=== PATIENT | female | born 1965 | race Caucasian/White ===

== ENCOUNTER 2025-03-12 11:43 | Inpatient (IN) | payer MEDICARE, MEDICAID ==
[~2025-03-12] VITALS: Ht 172.7 cm; Wt 78.3 kg
[~2025-03-12 11:43] MED LIST: ACET-897 PO; ALLO100T PO; BUDE3CAP PO; CYMB1CAP5 PO; ERGO500029 PO; FLUO40CA PO; GABA-1172 PO; INDO50CA2 OR; LEVO50TA2 OR; LEVO88TA3 PO; LISI10TA22 PO; MAGO400T2 PO; NYST-38 PO; ONDA-282 PO; PANT40TA29 PO; PRED20TA PO; SIME80CH6 GT; TRAM50TA2 OR; TRAZ1TAB11 PO; [UNRECOGNIZED DRUG - CODE] PO; [UNRECOGNIZED DRUG - OTHER] PO
[2025-03-13] MEDS ORDERED: PRED10TA2 PO (10:53)
[2025-03-13] MEDS ORDERED: LEVO75TAB PO (11:21)
[2025-03-13] MEDS ORDERED: ONDANSETRON 4MG ORAL DISINTEGRATING TAB PO PRN (12:25)
[2025-03-13] MEDS ORDERED: BISACODYL 10 MG SUPP PR PRN (12:40)
[2025-03-13] MEDS ORDERED: SIMETHICONE 80MG CHEW TAB PO PRN (12:40)
[2025-03-13] MEDS ORDERED: MAALOX 30 ML SUSP *UDC PO PRN (12:40)
[2025-03-13] MEDS ORDERED: MOM 30 ML SUSPENSION UDC PO PRN (12:40)
[2025-03-13] MEDS ORDERED: BISACODYL 5 MG TAB PO PRN (12:40)
[2025-03-13] MEDS ORDERED: LEVALBUTEROL 1.25 MG 0.5ML CONCENTRATE NEB INH PRN (12:45)
[2025-03-13 14:55] VITALS: BP 117/63; TEMP 98.3; O2SAT 99
[2025-03-13] MEDS: LEVALBUTEROL 1.25 MG 0.5ML CONCENTRATE NEB INH SCH (16:05)
[2025-03-13] MEDS: MAGNESIUM OXIDE 400 MG TAB PO SCH (18:25)
[2025-03-13] MEDS: NYSTATIN 500,000 UNITS/5 ML SUSP UDC PO SCH (18:25)
[2025-03-13] MEDS: ACETAMINOPHEN 500 MG TAB PO PRN (19:38)
[2025-03-13 20:00] VITALS: BP 135/78; TEMP 97; O2SAT 96
[2025-03-13] MEDS: SENNOSIDES/DOCUSATE SODIUM 8.6 MG/50MG TAB PO SCH (20:44)
[2025-03-13] MEDS: NYSTATIN 100,000 UNITS/GM TOPICAL PWD 15 GM TOP SCH (21:01)
[2025-03-13] MEDS: DICLOFENAC EPOLAMINE 1.3% PATCH TOP SCH (21:01)
[2025-03-13] MEDS: GABAPENTIN 300 MG CAP PO SCH (21:01)
[2025-03-14] MEDS: traZODone 50 MG TAB PO PRN (00:22)
[2025-03-14 04:00] VITALS: BP 159/90; TEMP 97; O2SAT 90
[2025-03-14] MEDS: LEVOTHYROXINE 88 MCG TABLET (0.088 MG) PO SCH (05:36)
[2025-03-14 06:17] LABS: BASO # 0.0 10^3/uL (0.0-0.2); BASO % 0.2 % (0.0-1.0); EOS # 0.1 10^3/uL (0.0-0.5); EOS % 1.0 % (0.0-3.0); LYMPH # 0.9 10^3/uL (1.5-5.0); LYMPH % 9.6 % (24.0-44.0); MONO # 0.5 10^3/uL (0.0-0.8); MONO % 5.4 % (2.0-8.0); NEUTROPHILS # 7.6 10^3/uL (1.5-8.5); NEUTROPHILS % 82.5 % (36.0-66.0); PLATELET COUNT, AUTOMATED 279 10^3/uL (150-450)
[2025-03-14 07:04] LABS: ALT/SGPT 22 U/L (7.0-40); AST/SGOT 23 U/L (<34); CALCIUM LEVEL 8.3 MG/DL (8.3-10.6); CARBON DIOXIDE LEVEL 31 MMOL/L (20-31); CHLORIDE LEVEL 101 MMOL/L (98-107); CREATININE FOR GFR 0.55 MG/DL (0.55-1.30); GLOMERULAR FILTRATION RATE > 90.0 (>45); POTASSIUM SERUM 3.9 MMOL/L (3.5-5.1); SODIUM LEVEL 141 MMOL/L (136-145)
[2025-03-14 07:20] VITALS: O2SAT 96
[2025-03-14] MEDS: BUDESONIDE EC 3 MG CAP PO SCH (07:22)
[2025-03-14] MEDS: predniSONE 20 MG TAB PO SCH (07:23)
[2025-03-14] MEDS: FLUoxetine 20 MG CAP PO SCH (07:23)
[2025-03-14] MEDS: PANTOPRAZOLE 40MG TAB PO SCH (07:23)
[2025-03-14] MEDS: ENOXAPARIN 40 MG/0.4 ML SYRINGE (J1650 PER 10MG) SC SCH (07:23)
[2025-03-14] MEDS: MIRALAX *UNIT DOSE* 17 GM PACKET PO SCH (08:22)
[2025-03-14] MEDS ORDERED: predniSONE 10 MG TAB PO SCH (09:00)
[2025-03-14] MEDS ORDERED: MAGNESIUM OXIDE 400 MG TAB PO SCH (09:00)
[2025-03-14 12:00] VITALS: BP 108/72; TEMP 97.3; O2SAT 93
[2025-03-14] MEDS: ACETAMINOPHEN 500 MG TAB PO SCH (12:01)
[2025-03-14 20:19] VITALS: BP 125/91; TEMP 97.5; O2SAT 94
[2025-03-15 04:00] VITALS: BP 134/74; TEMP 97.2; O2SAT 92
[2025-03-15 12:00] VITALS: BP 129/78; TEMP 97; O2SAT 96
[2025-03-15] MEDS: CYCLOBENZAPRINE 10 MG TABLET PO ONE (12:32)
[2025-03-15] MEDS ORDERED: PROHANCE 279.3MG/ML 15ML VIAL As Ordered ONE (16:49)
[2025-03-15] MEDS: THIAMINE INJection 500 MG in NS 100 ML IV SCH (17:50)
[2025-03-15] MEDS: CYANOCOBALAMIN 1,000 MCG/ML 1 ML VIAL IM SCH (17:51)
[2025-03-15 20:00] VITALS: BP 131/79; TEMP 98.1; O2SAT 94
[2025-03-16] MEDS: CYCLOBENZAPRINE 10 MG TABLET PO PRN (00:15)
[2025-03-16 04:00] VITALS: BP 139/76; TEMP 97.3; O2SAT 92
[2025-03-16 06:26] LABS: PLATELET COUNT, AUTOMATED 303 10^3/uL (150-450)
[2025-03-16 09:15] VITALS: BP 130/70
[2025-03-16 12:00] VITALS: BP 128/72; TEMP 97.4; O2SAT 95
[2025-03-16] MEDS ORDERED: PRED10TA2 PO (12:38)
[2025-03-16] MEDS ORDERED: LEVA1.25 INH (12:38)
[2025-03-16] MEDS ORDERED: MAGN400T33 PO (12:38)
[2025-03-16] MEDS ORDERED: CYCL10TA20 PO (12:38)
[2025-03-16] MEDS ORDERED: NYST10006 TOP (12:38)
[2025-03-16] MEDS ORDERED: GABA-1172 PO (12:38)
[2025-03-16] MEDS ORDERED: thiamine IV (12:38)
[2025-03-16] MEDS ORDERED: ACET-683 PO (12:38)
[2025-03-16] MEDS ORDERED: SENN-208 PO (12:38)
[2025-03-16] MEDS ORDERED: ENOX40IN3 SC (12:38)
[2025-03-16] MEDS ORDERED: DICL1PAT6 TOP (12:38)
[2025-03-16] MEDS ORDERED: OXYC-517 PO (12:38)
[2025-03-16] MEDS ORDERED: CYAN100017 IM (12:38)
[2025-03-16] MEDS ORDERED: MIRA33506 PO (12:38)
[2025-03-16 14:50] VITALS: TEMP 98.5
[2025-03-16 15:40] VITALS: BP 107/61; O2SAT 96
[2025-03-16 16:27] LABS: APPEARANCE, CSF CLEAR (CLEAR); COLOR, CSF COLORLESS (COLORLESS); CSF TUBE# CELL CNT TUBE 1
[2025-03-16 16:43] LABS: CSF TUBE# TP TUBE 3; TOTAL PROTEIN,CSF 85.2 MG/DL (15-45)
[2025-03-16 16:46] LABS: CSF TUBE# GLU TUBE 2; GLUCOSE CSF 60.0 MG/DL (40-70)
[2025-03-17] MEDS ORDERED: MIRA3350 PO (06:03)
[2025-03-17] MEDS ORDERED: SENN1TAB85 PO (06:03)
[2025-03-17] MEDS ORDERED: MAGN400T35 PO (06:04)
[2025-03-17] MEDS ORDERED: NYST1POW3 TOP (06:07)
[2025-03-17] MEDS ORDERED: predniSONE 10 MG TAB PO SCH (09:00)
[2025-03-18 02:22] LABS: T P ELECTROPHORESIS SO 4.6 g/dL (6.1-8.1)
[2025-03-18] MEDS ORDERED: VITAMIN D 50,000 UNITS CAPSULE (ERGOCALCIFEROL 1.25MG) PO SCH (09:00)
[2025-03-19 23:45] LABS: CSF LYME DISEASE AB IGG NO BANDS DETECTED (NO BANDS); CSF LYME DISEASE AB IGM NO BANDS DETECTED (NO BANDS)
[2025-03-20] MEDS ORDERED: predniSONE 10 MG TAB PO SCH (09:00)
[2025-03-20 13:43] LABS: ALBUMIN SPEP 2.6 g/dL (3.8-4.8); ALPHA-1-GLOBULINS SO 0.4 g/dL (0.2-0.3); ALPHA-2-GLOBULINS SO 0.7 g/dL (0.5-0.9); BETA 2 GLOBULIN 0.2 g/dL (0.2-0.5); BETA-GLOBULIN SO 0.3 g/dL (0.4-0.6); GAMMA GLOBULINS SO 0.3 g/dL (0.8-1.7)
[2025-03-20 20:27] LABS: OLIGOCLONAL BANDS, CSF Absent (Absent)
[2025-03-21 17:11] LABS: VITAMIN B1 LEVEL WHOLE BLOOD 57 nmol/L (78-185)
[2025-03-23 01:06] LABS: MYELIN BASIC PROTEIN, CSF 10.8 ng/mL (0.0-3.7)
== END 2025-03-16 16:22 | disposition still patient (30) | DRG 94 ==
LOC: M PM&R 03-13 13:55
PROVIDERS: ADMIT Physical Medicine & Rehabilitation; ATTEND Physical Medicine & Rehabilitation
PROC: 009U3ZX Drainage of Spinal Canal, Percutaneous Approach, Diagnostic (ICD-10-PCS; principal; 2025-03-16 15:30)
DX: G61.0 Guillain-Barre syndrome (principal); J18.9 Pneumonia, unspecified organism; K50.90 Crohn's disease, unspecified, without complications; N13.30 Unspecified hydronephrosis; Q21.12 Patent foramen ovale; N13.4 Hydroureter; E51.2 Wernicke's encephalopathy; I10 Essential (primary) hypertension; E03.9 Hypothyroidism, unspecified; G89.29 Other chronic pain; M06.9 Rheumatoid arthritis, unspecified; K44.9 Diaphragmatic hernia without obstruction or gangrene; K21.9 Gastro-esophageal reflux disease without esophagitis; M10.9 Gout, unspecified; Z74.1 Need for assistance with personal care; Z74.09 Other reduced mobility; F39 Unspecified mood [affective] disorder; I89.0 Lymphedema, not elsewhere classified; R32 Unspecified urinary incontinence; R07.89 Other chest pain; Z87.891 Personal history of nicotine dependence; Z96.641 Presence of right artificial hip joint; Z90.49 Acquired absence of other specified parts of digestive tract; Z79.890 Hormone replacement therapy; Z79.52 Long term (current) use of systemic steroids; Z79.899 Other long term (current) drug therapy; R26.89 Other abnormalities of gait and mobility

== ENCOUNTER 2025-03-16 13:09 | Inpatient (IN) | payer MEDICARE, MEDICAID ==
[2025-03-16] VITALS (12 sets, daily range): BP systolic 105–171; BP diastolic 69–95; TEMP 97.2–98.9; O2SAT 92–97
[~2025-03-16] VITALS: Ht 172.7 cm; Wt 76.5 kg
[~2025-03-16 13:09] MED LIST changes: +ACET-683 PO; +CYAN100017 IM; +CYCL10TA20 PO; +DICL1PAT6 TOP; +ENOX40IN3 SC; +LEVA1.25 INH; +LEVO75TAB PO; +MAGN400T33 PO; +MIRA33506 PO; +NYST10006 TOP; +OXYC-517 PO; +PRED10TA2 PO; +SENN-208 PO; +thiamine IV
[2025-03-16] MEDS ORDERED: MAALOX 30 ML SUSP *UDC PO PRN (14:15)
[2025-03-16] MEDS ORDERED: MOM 30 ML SUSPENSION UDC PO PRN (14:15)
[2025-03-16] MEDS: diphenhydrAMINE 50 MG/ML VIAL IV SCH (18:06)
[2025-03-16] MEDS: ACETAMINOPHEN 325 MG TAB PO SCH (18:08)
[2025-03-16] MEDS: IMMUNE GLOBULIN 10% 5 GM in IV 1 EA IV SCH (18:51)
[2025-03-16] MEDS: IMMUNE GLOBULIN 10% 10 GM in IV 1 EA IV SCH (20:22)
[2025-03-16] MEDS: PANTOPRAZOLE 40MG TAB PO SCH (20:46)
[2025-03-16] MEDS: SENNOSIDES/DOCUSATE SODIUM 8.6 MG/50MG TAB PO SCH (20:46)
[2025-03-16] MEDS: IMMUNE GLOBULIN 10% 40 GM in IV 1 EA IV SCH (21:47)
[2025-03-16] MEDS: CYCLOBENZAPRINE 10 MG TABLET PO ONE (22:43)
[2025-03-17] VITALS (11 sets, daily range): BP systolic 102–160; BP diastolic 67–92; TEMP 97.2–98.7; O2SAT 91–95
[2025-03-17] MEDS: THIAMINE INJection 500 MG in NS 100 ML IV SCH (00:35)
[2025-03-17] MEDS: ACETAMINOPHEN 325 MG TAB PO PRN (01:27)
[2025-03-17] MEDS ORDERED: CEPACOL LOZENGE PO PRN (03:05)
[2025-03-17] MEDS ORDERED: SENN1TAB85 PO (06:03)
[2025-03-17] MEDS ORDERED: MIRA3350 PO (06:03)
[2025-03-17] MEDS ORDERED: MAGN400T35 PO (06:04)
[2025-03-17] MEDS ORDERED: NYST1POW3 TOP (06:07)
[2025-03-17] MEDS ORDERED: HOME MED LIST COMPLETE! XX SCH (06:30)
[2025-03-17] MEDS ORDERED: ONDANSETRON 4MG ORAL DISINTEGRATING TAB PO PRN (06:40)
[2025-03-17] MEDS ORDERED: traZODone 50 MG TAB PO PRN (06:40)
[2025-03-17 07:05] LABS: BASO # 0.0 10^3/uL (0.0-0.2); BASO % 0.0 % (0.0-1.0); EOS # 0.0 10^3/uL (0.0-0.5); EOS % 0.0 % (0.0-3.0); LYMPH # 0.6 10^3/uL (1.5-5.0); LYMPH % 7.0 % (24.0-44.0); MONO # 0.5 10^3/uL (0.0-0.8); MONO % 6.0 % (2.0-8.0); NEUTROPHILS # 7.1 10^3/uL (1.5-8.5); NEUTROPHILS % 85.1 % (36.0-66.0); PLATELET COUNT, AUTOMATED 331 10^3/uL (150-450)
[2025-03-17] MEDS: LEVALBUTEROL 1.25 MG 0.5ML CONCENTRATE NEB INH SCH (07:31)
[2025-03-17 07:42] LABS: ALT/SGPT 25 U/L (7.0-40); AST/SGOT 25 U/L (<34); CALCIUM LEVEL 8.4 MG/DL (8.3-10.6); CARBON DIOXIDE LEVEL 27 MMOL/L (20-31); CHLORIDE LEVEL 103 MMOL/L (98-107); CREATININE FOR GFR 0.63 MG/DL (0.55-1.30); GLOMERULAR FILTRATION RATE > 90.0 (>45); MAGNESIUM LEVEL 1.7 MG/DL (1.8-2.4); POTASSIUM SERUM 4.2 MMOL/L (3.5-5.1); SODIUM LEVEL 138 MMOL/L (136-145)
[2025-03-17] MEDS: BUDESONIDE EC 3 MG CAP PO SCH (08:51)
[2025-03-17] MEDS: ENOXAPARIN 40 MG/0.4 ML SYRINGE (J1650 PER 10MG) SC SCH (08:51)
[2025-03-17] MEDS: LEVOTHYROXINE 88 MCG TABLET (0.088 MG) PO SCH (08:51)
[2025-03-17] MEDS: FLUoxetine 20 MG CAP PO SCH (08:52)
[2025-03-17] MEDS: CYANOCOBALAMIN 1,000 MCG/ML 1 ML VIAL IM SCH (08:53)
[2025-03-17] MEDS: MIRALAX *UNIT DOSE* 17 GM PACKET PO SCH (08:53)
[2025-03-17] MEDS: MAG SULF 1GM/100ML (MAG RUN) 1 GM in IV 1 EA IV SCH (13:56)
[2025-03-17] MEDS ORDERED: PROHANCE 279.3MG/ML 15ML VIAL As Ordered ONE (14:15)
[2025-03-18] VITALS (10 sets, daily range): BP systolic 137–166; BP diastolic 70–97; TEMP 97.2–98.7; O2SAT 92–99
[2025-03-18] MEDS: CYCLOBENZAPRINE 10 MG TABLET PO ONE (00:30)
[2025-03-18 06:18] LABS: CALCIUM LEVEL 7.8 MG/DL (8.3-10.6); CARBON DIOXIDE LEVEL 28 MMOL/L (20-31); CHLORIDE LEVEL 103 MMOL/L (98-107); CREATININE FOR GFR 0.60 MG/DL (0.55-1.30); GLOMERULAR FILTRATION RATE > 90.0 (>45); MAGNESIUM LEVEL 1.7 MG/DL (1.8-2.4); POTASSIUM SERUM 4.0 MMOL/L (3.5-5.1); SODIUM LEVEL 137 MMOL/L (136-145)
[2025-03-18 07:36] LABS: BASO # 0.0 10^3/uL (0.0-0.2); BASO % 0.1 % (0.0-1.0); EOS # 0.0 10^3/uL (0.0-0.5); EOS % 0.0 % (0.0-3.0); LYMPH # 0.5 10^3/uL (1.5-5.0); LYMPH % 7.2 % (24.0-44.0); MONO # 0.4 10^3/uL (0.0-0.8); MONO % 5.6 % (2.0-8.0); NEUTROPHILS # 5.8 10^3/uL (1.5-8.5); NEUTROPHILS % 85.3 % (36.0-66.0); PLATELET COUNT, AUTOMATED 306 10^3/uL (150-450)
[2025-03-18] MEDS: MAG SULF 1GM/100ML (MAG RUN) 1 GM in IV 1 EA IV ONE (08:51)
[2025-03-19 04:45] VITALS: BP 160/98; TEMP 98.8; O2SAT 92
[2025-03-19 06:12] LABS: BASO # 0.0 10^3/uL (0.0-0.2); BASO % 0.2 % (0.0-1.0); EOS # 0.0 10^3/uL (0.0-0.5); EOS % 0.0 % (0.0-3.0); LYMPH # 0.6 10^3/uL (1.5-5.0); LYMPH % 9.1 % (24.0-44.0); MONO # 0.3 10^3/uL (0.0-0.8); MONO % 5.5 % (2.0-8.0); NEUTROPHILS # 5.0 10^3/uL (1.5-8.5); NEUTROPHILS % 82.7 % (36.0-66.0); PLATELET COUNT, AUTOMATED 299 10^3/uL (150-450)
[2025-03-19 06:41] LABS: CALCIUM LEVEL 7.8 MG/DL (8.3-10.6); CARBON DIOXIDE LEVEL 29 MMOL/L (20-31); CHLORIDE LEVEL 100 MMOL/L (98-107); CREATININE FOR GFR 0.54 MG/DL (0.55-1.30); GLOMERULAR FILTRATION RATE > 90.0 (>45); MAGNESIUM LEVEL 1.7 MG/DL (1.8-2.4); POTASSIUM SERUM 3.6 MMOL/L (3.5-5.1); SODIUM LEVEL 135 MMOL/L (136-145)
[2025-03-19] MEDS: MAG SULF 1GM/100ML (MAG RUN) 1 GM in IV 1 EA IV SCH (10:25)
[2025-03-19] MEDS: ACETAMINOPHEN 650MG PO PRIOR TO INFUSION PO SCH (12:31)
[2025-03-19] MEDS: diphenhydrAMINE 25MG IV PRIOR TO INFUSION IV SCH (12:31)
[2025-03-19] MEDS: IMMUNE GLOBULIN 10% 20 GM in IV 1 EA IV ONE (13:19)
[2025-03-19 13:29] VITALS: BP 154/87; TEMP 98.4; O2SAT 95
[2025-03-19 13:51] VITALS: BP 159/85; TEMP 98.2; O2SAT 94
[2025-03-19 14:25] VITALS: BP 130/84; TEMP 98.3; O2SAT 92
[2025-03-19 15:10] VITALS: BP 137/81; TEMP 98.3; O2SAT 93
[2025-03-19] MEDS: IMMUNE GLOBULIN 10% 10 GM in IV 1 EA IV ONE (15:53)
[2025-03-19] MEDS: MAGNESIUM OXIDE 400 MG TAB PO SCH (20:09)
[2025-03-19 20:23] VITALS: BP 140/86; TEMP 97.4; O2SAT 93
[2025-03-20] VITALS (11 sets, daily range): BP systolic 105–160; BP diastolic 62–96; TEMP 97–98; O2SAT 89–96
[2025-03-20 06:44] LABS: BASO # 0.0 10^3/uL (0.0-0.2); BASO % 0.2 % (0.0-1.0); EOS # 0.0 10^3/uL (0.0-0.5); EOS % 0.2 % (0.0-3.0); LYMPH # 0.7 10^3/uL (1.5-5.0); LYMPH % 12.4 % (24.0-44.0); MONO # 0.5 10^3/uL (0.0-0.8); MONO % 8.1 % (2.0-8.0); NEUTROPHILS # 4.4 10^3/uL (1.5-8.5); NEUTROPHILS % 77.2 % (36.0-66.0); PLATELET COUNT, AUTOMATED 316 10^3/uL (150-450)
[2025-03-20 07:13] LABS: CALCIUM LEVEL 7.9 MG/DL (8.3-10.6); CARBON DIOXIDE LEVEL 29 MMOL/L (20-31); CHLORIDE LEVEL 100 MMOL/L (98-107); CREATININE FOR GFR 0.55 MG/DL (0.55-1.30); GLOMERULAR FILTRATION RATE > 90.0 (>45); MAGNESIUM LEVEL 1.7 MG/DL (1.8-2.4); POTASSIUM SERUM 3.3 MMOL/L (3.5-5.1); SODIUM LEVEL 136 MMOL/L (136-145)
[2025-03-20] MEDS: POTASSIUM CHLORIDE 10MEQ SR TABLET PO ONE (08:06)
[2025-03-20] MEDS: MAG SULF 1GM/100ML (MAG RUN) 1 GM in IV 1 EA IV SCH (09:12)
[2025-03-20] MEDS ORDERED: CYAN100017 IM (10:50)
[2025-03-20] MEDS ORDERED: MAGN400T33 PO (10:50)
[2025-03-20] MEDS ORDERED: [UNRECOGNIZED DRUG - CODE] IV (10:50)
[2025-03-20] MEDS: IMMUNE GLOBULIN 10% 10 GM in IV 1 EA IV ONE (12:17)
[2025-03-20] MEDS: IMMUNE GLOBULIN 10% 20 GM in IV 1 EA IV ONE (14:04)
== END 2025-03-20 16:57 | DRG 95 ==
LOC: M ED INP 13:33 → UNDOADMIN 13:33 → M MSPAV 15:59
PROVIDERS: ADMIT Student in an Organized Health Care Education/Training Program; ATTEND Internal Medicine
DX: G61.0 Guillain-Barre syndrome (principal); K50.90 Crohn's disease, unspecified, without complications; Q21.12 Patent foramen ovale; I10 Essential (primary) hypertension; E03.9 Hypothyroidism, unspecified; M10.9 Gout, unspecified; K21.9 Gastro-esophageal reflux disease without esophagitis; E87.6 Hypokalemia; M06.9 Rheumatoid arthritis, unspecified; K44.9 Diaphragmatic hernia without obstruction or gangrene; I89.0 Lymphedema, not elsewhere classified; Z90.49 Acquired absence of other specified parts of digestive tract; Z96.642 Presence of left artificial hip joint; Z87.891 Personal history of nicotine dependence; F39 Unspecified mood [affective] disorder; G89.29 Other chronic pain; D64.9 Anemia, unspecified; E83.42 Hypomagnesemia; Z79.890 Hormone replacement therapy; Z79.899 Other long term (current) drug therapy

== ENCOUNTER 2025-03-20 12:39 | Inpatient (IN) | payer MEDICARE, MEDICAID ==
[~2025-03-20] VITALS: Ht 172.7 cm; Wt 69.0 kg
[~2025-03-20 12:39] MED LIST changes: +MAGN400T35 PO; +MIRA3350 PO; +NYST1POW3 TOP; +SENN1TAB85 PO; +[UNRECOGNIZED DRUG - CODE] IV
[2025-03-20] MEDS ORDERED: MIRALAX *UNIT DOSE* 17 GM PACKET PO PRN (15:25)
[2025-03-20] MEDS ORDERED: traZODone 50 MG TAB PO PRN (15:25)
[2025-03-20] MEDS ORDERED: ONDANSETRON 4MG ORAL DISINTEGRATING TAB PO PRN ×2 (15:25→15:40)
[2025-03-20] MEDS ORDERED: BISACODYL 5 MG TAB PO PRN (15:40)
[2025-03-20] MEDS ORDERED: SIMETHICONE 80MG CHEW TAB PO PRN (15:40)
[2025-03-20] MEDS ORDERED: MAALOX 30 ML SUSP *UDC PO PRN (15:40)
[2025-03-20] MEDS ORDERED: MOM 30 ML SUSPENSION UDC PO PRN (15:40)
[2025-03-20] MEDS ORDERED: BISACODYL 10 MG SUPP PR PRN (15:40)
[2025-03-20 17:00] VITALS: BP 138/88; TEMP 97.9; O2SAT 94
[2025-03-20] MEDS: ACETAMINOPHEN 500 MG TAB PO SCH (18:59)
[2025-03-20] MEDS: LEVALBUTEROL 1.25 MG 0.5ML CONCENTRATE NEB INH SCH (19:44)
[2025-03-20 20:00] VITALS: BP 180/80; TEMP 97.4; O2SAT 95
[2025-03-20] MEDS: MAGNESIUM OXIDE 400 MG TAB PO SCH (20:26)
[2025-03-20] MEDS: PANTOPRAZOLE 40MG TAB PO SCH (20:26)
[2025-03-20] MEDS: GABAPENTIN 300 MG CAP PO SCH (20:26)
[2025-03-20] MEDS: CYCLOBENZAPRINE 10 MG TABLET PO PRN (20:26)
[2025-03-20] MEDS: SENNOSIDES/DOCUSATE SODIUM 8.6 MG/50MG TAB PO SCH (20:27)
[2025-03-20] MEDS: DICLOFENAC EPOLAMINE 1.3% PATCH TOP SCH (20:27)
[2025-03-20] MEDS: NYSTATIN 100,000 UNITS/GM TOPICAL PWD 15 GM TOP SCH (21:00)
[2025-03-21] MEDS: THIAMINE INJection 500 MG in NS 100 ML IV SCH (00:45)
[2025-03-21 04:00] VITALS: BP 160/82; TEMP 97.5; O2SAT 96
[2025-03-21 06:27] LABS: BASO # 0.0 10^3/uL (0.0-0.2); BASO % 0.2 % (0.0-1.0); EOS # 0.0 10^3/uL (0.0-0.5); EOS % 0.4 % (0.0-3.0); LYMPH # 0.5 10^3/uL (1.5-5.0); LYMPH % 10.8 % (24.0-44.0); MONO # 0.5 10^3/uL (0.0-0.8); MONO % 10.4 % (2.0-8.0); NEUTROPHILS # 3.5 10^3/uL (1.5-8.5); NEUTROPHILS % 75.8 % (36.0-66.0); PLATELET COUNT, AUTOMATED 275 10^3/uL (150-450)
[2025-03-21] MEDS: LEVOTHYROXINE 88 MCG TABLET (0.088 MG) PO SCH (06:27)
[2025-03-21 06:47] LABS: ALT/SGPT 20 U/L (7.0-40); AST/SGOT 27 U/L (<34); CALCIUM LEVEL 7.8 MG/DL (8.3-10.6); CARBON DIOXIDE LEVEL 26 MMOL/L (20-31); CHLORIDE LEVEL 102 MMOL/L (98-107); CREATININE FOR GFR 0.56 MG/DL (0.55-1.30); GLOMERULAR FILTRATION RATE > 90.0 (>45); POTASSIUM SERUM 3.8 MMOL/L (3.5-5.1); SODIUM LEVEL 134 MMOL/L (136-145)
[2025-03-21] MEDS: CYANOCOBALAMIN 1,000 MCG/ML 1 ML VIAL IM SCH (08:20)
[2025-03-21] MEDS: ENOXAPARIN 40 MG/0.4 ML SYRINGE (J1650 PER 10MG) SC SCH (08:20)
[2025-03-21] MEDS: BUDESONIDE EC 3 MG CAP PO SCH (08:21)
[2025-03-21] MEDS: FLUoxetine 20 MG CAP PO SCH (08:22)
[2025-03-21 12:00] VITALS: BP 142/67; TEMP 98.7; O2SAT 93
[2025-03-21] MEDS ORDERED: PILL CUTTER 1 EACH XX PRN (15:45)
[2025-03-21 20:00] VITALS: BP 155/93; TEMP 96.9; O2SAT 98
[2025-03-21] MEDS: GABAPENTIN 300 MG CAP PO SCH (20:41)
[2025-03-21] MEDS: TAMSULOSIN 0.4 MG CAP PO SCH (20:41)
[2025-03-21] MEDS: traZODone 50 MG TAB PO SCH (20:43)
[2025-03-22 04:00] VITALS: BP 154/89; TEMP 97; O2SAT 94
[2025-03-22 12:14] VITALS: BP 107/63; TEMP 97; O2SAT 96
[2025-03-22 20:00] VITALS: BP 136/88; TEMP 98.3; O2SAT 93
[2025-03-22] MEDS: traZODone 50 MG TAB PO SCH (21:06)
[2025-03-23 04:00] VITALS: BP 120/71; TEMP 97.8; O2SAT 95
[2025-03-23 06:54] LABS: PLATELET COUNT, AUTOMATED 144 10^3/uL (150-450)
[2025-03-23 12:00] VITALS: BP 118/69; TEMP 97.3; O2SAT 94
[2025-03-23 16:55] VITALS: BP 129/79; O2SAT 92
[2025-03-23 19:25] VITALS: BP 124/81; TEMP 98.5; O2SAT 95
[2025-03-24 03:14] VITALS: BP 140/87; TEMP 97.1; O2SAT 93
[2025-03-24 12:00] VITALS: BP 141/96; TEMP 97.8; O2SAT 96
[2025-03-24 20:00] VITALS: BP 167/98; TEMP 97.5; O2SAT 95
[2025-03-25 04:00] VITALS: BP 135/83; TEMP 97.1; O2SAT 93
[2025-03-25 12:00] VITALS: BP 124/75; TEMP 98.5; O2SAT 93
[2025-03-25 20:00] VITALS: BP 159/93; TEMP 97.8; O2SAT 95
[2025-03-26 04:00] VITALS: BP 138/86; TEMP 98.2; O2SAT 93
[2025-03-26 06:21] LABS: PLATELET COUNT, AUTOMATED 200 10^3/uL (150-450)
[2025-03-26 12:00] VITALS: BP 111/71; TEMP 97.7; O2SAT 93
[2025-03-26] MEDS: VITAMIN D 50,000 UNITS CAPSULE (ERGOCALCIFEROL 1.25MG) PO SCH (15:12)
[2025-03-26 20:00] VITALS: BP 111/69; TEMP 98.6; O2SAT 93
[2025-03-26] MEDS ORDERED: DICLOFENAC EPOLAMINE 1.3% PATCH TOP SCH (21:00)
[2025-03-26] MEDS: DICLOFENAC EPOLAMINE 1.3% PATCH TOP SCH (21:18)
[2025-03-27 04:00] VITALS: BP 169/90; TEMP 97.4; O2SAT 95
[2025-03-27 12:00] VITALS: BP_SYST 104; BP_SYST 97; BP_DIAS 66; BP_DIAS 72; TEMP 97; O2SAT 97
[2025-03-27 17:41] LABS: BASO # 0.0 10^3/uL (0.0-0.2); BASO % 0.0 % (0.0-1.0); EOS # 0.0 10^3/uL (0.0-0.5); EOS % 0.4 % (0.0-3.0); LYMPH # 0.7 10^3/uL (1.5-5.0); LYMPH % 24.3 % (24.0-44.0); MONO # 0.4 10^3/uL (0.0-0.8); MONO % 14.6 % (2.0-8.0); NEUTROPHILS # 1.6 10^3/uL (1.5-8.5); NEUTROPHILS % 60.0 % (36.0-66.0); PLATELET COUNT, AUTOMATED 154 10^3/uL (150-450)
[2025-03-27 18:08] LABS: CALCIUM LEVEL 8.3 MG/DL (8.3-10.6); CARBON DIOXIDE LEVEL 28 MMOL/L (20-31); CHLORIDE LEVEL 101 MMOL/L (98-107); CREATININE FOR GFR 0.69 MG/DL (0.55-1.30); GLOMERULAR FILTRATION RATE > 90.0 (>45); POTASSIUM SERUM 4.6 MMOL/L (3.5-5.1); SODIUM LEVEL 136 MMOL/L (136-145)
[2025-03-27 20:00] VITALS: BP 159/98; TEMP 97.5; O2SAT 93
[2025-03-27] MEDS: SODIUM CHLORIDE 0.9% 3 ML NEB SOLUTION FOR INHALATION INH SCH (20:21)
[2025-03-27] MEDS: SODIUM CHLORIDE NASAL 0.65% SPRAY BTL (OCEAN) SCH (20:25)
[2025-03-28 04:00] VITALS: BP 138/76; TEMP 98.6; O2SAT 94
[2025-03-28 12:00] VITALS: BP 97/58; TEMP 97.7; O2SAT 95
[2025-03-28 20:00] VITALS: BP 118/83; TEMP 96; O2SAT 95
[2025-03-28 20:30] VITALS: TEMP 97
[2025-03-29 04:00] VITALS: BP 121/62; TEMP 97.2; O2SAT 93
[2025-03-29 12:00] VITALS: BP 94/60; TEMP 98.1; O2SAT 94
[2025-03-29 13:42] VITALS: BP 79/47; TEMP 98.6; O2SAT 97
[2025-03-29 13:50] VITALS: BP 109/59; TEMP 98.8; O2SAT 96
[2025-03-29 20:00] VITALS: BP 119/72; TEMP 96.8; O2SAT 97
[2025-03-30 04:00] VITALS: BP 152/91; TEMP 97.3; O2SAT 93
[2025-03-30 12:00] VITALS: BP 97/60; TEMP 97.8; O2SAT 93
[2025-03-30] MEDS ORDERED: DICLOFENAC EPOLAMINE 1.3% PATCH TOP SCH (12:00)
[2025-03-30] MEDS: DICLOFENAC EPOLAMINE 1.3% PATCH TOP ONE (13:35)
[2025-03-30] MEDS: LIDOCAINE 5% PATCH TD ONE (14:32)
[2025-03-30] MEDS: DICLOFENAC EPOLAMINE 1.3% PATCH TOP SCH (18:10)
[2025-03-30 20:20] VITALS: BP 128/85; TEMP 97.8; O2SAT 95
[2025-03-31 03:22] VITALS: BP 119/74; TEMP 98.2; O2SAT 92
[2025-03-31] MEDS: LIDOCAINE 5% PATCH TD SCH (05:49)
[2025-03-31 12:00] VITALS: BP 78/42; TEMP 96.9; O2SAT 92
[2025-03-31 20:00] VITALS: BP 104/70; TEMP 98.7; O2SAT 94
[2025-04-01 04:00] VITALS: BP 126/77; TEMP 97.7; O2SAT 92
[2025-04-01 07:26] LABS: PLATELET COUNT, AUTOMATED 196 10^3/uL (150-450)
[2025-04-01 12:00] VITALS: BP 99/54; TEMP 97.4; O2SAT 90
[2025-04-01 20:06] VITALS: BP 133/88; TEMP 97; O2SAT 93
[2025-04-02 04:00] VITALS: BP 132/92; TEMP 96.9; O2SAT 94
[2025-04-02 08:22] VITALS: BP 130/80
[2025-04-02] MEDS ORDERED: LEVA15HF2 INH (10:39)
[2025-04-02] MEDS ORDERED: OXYC-517 PO (10:39)
[2025-04-02] MEDS ORDERED: DULO1CAP4 PO (10:39)
[2025-04-02] MEDS ORDERED: TAMS1CAP17 PO (10:39)
[2025-04-02 12:00] VITALS: BP 118/62; TEMP 98.4; O2SAT 96
== END 2025-04-02 14:15 | disposition home health service (06) | DRG 94 ==
LOC: M PM&R 17:00
PROVIDERS: ADMIT Physical Medicine & Rehabilitation; ATTEND Physical Medicine & Rehabilitation
DX: G61.0 Guillain-Barre syndrome (principal); J18.9 Pneumonia, unspecified organism; K50.90 Crohn's disease, unspecified, without complications; N13.30 Unspecified hydronephrosis; Q21.12 Patent foramen ovale; I10 Essential (primary) hypertension; E03.9 Hypothyroidism, unspecified; K44.9 Diaphragmatic hernia without obstruction or gangrene; K21.9 Gastro-esophageal reflux disease without esophagitis; M10.9 Gout, unspecified; K57.90 Diverticulosis of intestine, part unspecified, without perforation or abscess without bleeding; G62.9 Polyneuropathy, unspecified; F17.210 Nicotine dependence, cigarettes, uncomplicated; R33.9 Retention of urine, unspecified; E83.42 Hypomagnesemia; E87.6 Hypokalemia; Z79.890 Hormone replacement therapy; M06.9 Rheumatoid arthritis, unspecified; Z79.899 Other long term (current) drug therapy; I89.0 Lymphedema, not elsewhere classified; G47.00 Insomnia, unspecified; R07.9 Chest pain, unspecified; M25.572 Pain in left ankle and joints of left foot